=== PATIENT | female | born 1990 | race Two or more races ===

== ENCOUNTER 2018-05-16 11:13 | Inpatient (IN) | payer MEDICAID | END 2018-05-19 13:45 | disposition home or self-care (01) | LOC: ER 11:13 → OVERFLOW 14:41 → CENTRAL 20:00 | PROC: 0FT44ZZ Resection of Gallbladder, Percutaneous Endoscopic Approach (ICD-10-PCS; principal; 2018-05-18 07:26) | DX: K80.20 Calculus of gallbladder without cholecystitis without obstruction (principal); E11.9 Type 2 diabetes mellitus without complications; N39.0 Urinary tract infection, site not specified; F12.10 Cannabis abuse, uncomplicated; Z79.4 Long term (current) use of insulin; K80.10 Calculus of gallbladder with chronic cholecystitis without obstruction ==

== ENCOUNTER 2019-02-05 12:40 | Inpatient (IN) | payer SELFPAY ==
[~2019-02-05] VITALS: Ht 167.6 cm; Wt 71.8 kg
[~2019-02-05 12:40] MED LIST: ACE650RS PR; METF-370 PO
[2019-02-05 13:41] LABS: Basophils # (auto) 0 uL; Basophils % (auto) 0.2 % (0.0-2.0); Eosinophils # (auto) 0 uL; Eosinophils % (auto) 0.3 % (0.0-7.0); Hematocrit 44.8 % (36.0-46.0); Hemoglobin 15.1 g/dL (12.2-16.2); Lymphocytes # (auto) 0.6 uL; Lymphocytes % (auto) 4.9 % (10.0-50.0); Mean Corpuscular Hgb Conc. 33.8 g/dL (32.0-36.0); Mean Corpuscular Volume 88.9 fL (80.0-100.0); Monocytes # (auto) 0.2 uL; Monocytes % (auto) 1.8 % (0.0-12.0); Neutrophils # (auto) 11.2 uL; Neutrophils % (auto) 92.8 % (37.0-80.0); Nucleated Red Blood Cells % 0.1 %; Platelet Count (auto) 356 10^3/uL (140-450); Red Blood Cells 5.04 10^6/uL (4.0-5.20); Red Cell Distribution Width 13.1 % (11.8-14.3); White Blood Cell 12.1 10^3/uL (4.4-10.8)
[2019-02-05 14:05] LABS: Alanine Aminotransferase 35 U/L (13-56); Albumin 4.3 g/dL (3.4-5.0); Amylase 48 U/L (25-115); Anion Gap 12 (5-15); Aspartate Aminotransferase 14 U/L (15-37); BUN/Creatinine Ratio 21.2; Blood Urea Nitrogen 18 mg/dL (7-18); Carbon Dioxide 19 mmol/L (21-32); Chloride 109 mmol/L (98-107); GFR African American 101 mL/min; GFR Non-African American 83 mL/min; Glucose 203 mg/dL (74-106); Lipase 62 U/L (73-393); Sodium 140 mmol/L (136-145)
[2019-02-05 14:10] LABS: Alkaline Phosphatase 129 U/L (45-117); Bilirubin, Total 0.9 mg/dL (0.2-1.0); Total Protein 8.4 g/dL (6.4-8.2)
[2019-02-05] MEDS ORDERED: PROCHLORPERAZINE EDISYLATE 5 MG/ML 2ML VIAL IV ONE (16:15)
[2019-02-05] MEDS ORDERED: SODIUM CHLORIDE 0.9% 1,000 ML IV ONE ×2 (18:41)
[2019-02-05] MEDS ORDERED: PIPERACILLIN-TAZOB 3.375GM 100 ML IV ONE (18:45)
[2019-02-05 19:34] LABS: Lactic Acid w/Reflex 3.6 mmol/L (0.4-2.0)
[2019-02-05] MEDS ORDERED: DEXTROSE (50%) 50ML SYRG IV PRN (20:00)
[2019-02-05] MEDS ORDERED: ACETAMINOPHEN 500 MG TAB PO PRN (20:00)
[2019-02-05] MEDS ORDERED: MORPHINE SULF INJ 2 MG/ML SYRINGE 1ML IV PRN ×2 (20:00)
[2019-02-05] MEDS ORDERED: NITROGLYCERIN 0.4 MG SL TAB SL PRN (20:00)
[2019-02-05] MEDS ORDERED: HYDROcodone-ACET 5/325MG TAB PO PRN (20:00)
[2019-02-05 21:00] VITALS: BP 119/68
--- NOTE | 2019-02-05 21:00 | NUR ---
MS admit from ER [facility] admitted to tele/MS after SBAR received. Patient oriented to Marlena Richardson, primary RN, unit, room, bed, and unit policies regarding patient care and visiting hours. Patient weighed by bed scale and encouraged to call if they need something. All questions and concerns addressed, patient verbalized understanding. NO S/SX OF DISTRESS, SOB OR PAIN. WILL CONTINUE TO MONITOR Q1H AND PRN.
[2019-02-05 22:00] VITALS: BP 119/68
[2019-02-05] MEDS: VANCOMYCIN HCL 125MG/5ML ORAL SOL PO SCH (22:00)
--- NOTE | 2019-02-05 22:00 | NUR ---
CONTAINER FOR COLLECTION STOOL SPECIMEN AT BEDSIDE. PATIENT UNDERSTANDS AND VERBALIZES INSTRUCTION FOR COLLECTION AND PREFERS TO COLLECT HERSELF.
[2019-02-05] MEDS ORDERED: INFLUENZA QUAD 2019-2020 0.5ml SYRG IM ONE (22:30)
[2019-02-05] MEDS: SODIUM CHLORIDE 0.9% 1,000 ML IV SCH (22:37)
[2019-02-05] MEDS: FAMOTIDINE (10MG/ML) 2ML VL IV SCH (22:38)
[2019-02-06] VITALS (8 sets, daily range): BP systolic 102–125; BP diastolic 60–84
[2019-02-06] MEDS: PIPERACILLIN-TAZOB 3.375GM 100 ML IV SCH ×3 (00:52→11:13)
[2019-02-06] MEDS: ACCU-CHEK COMFORT CURVE STRIP VI SCH ×4 (00:52→17:49)
--- NOTE | 2019-02-06 05:15 | NUR ---
NAUSEA AND VOMITING. CLEAR FLUID. WILL ADMINISTER NAUSEA MEDICATION PER MD ORDERS ON eMAR.
[2019-02-06] MEDS: ONDANSETRON HCL 4 MG/2 ML VIAL IV PRN (05:19)
[2019-02-06 05:59] LABS: Basophils # (auto) 0 uL; Basophils % (auto) 0.2 % (0.0-2.0); Eosinophils # (auto) 0.1 uL; Eosinophils % (auto) 1.4 % (0.0-7.0); Hematocrit 39.7 % (36.0-46.0); Hemoglobin 13.2 g/dL (12.2-16.2); Lymphocytes # (auto) 2.3 uL; Lymphocytes % (auto) 29.6 % (10.0-50.0); Mean Corpuscular Hemoglobin 29.8 pg (28.0-32.0); Mean Corpuscular Hgb Conc. 33.4 g/dL (32.0-36.0); Mean Corpuscular Volume 89.4 fL (80.0-100.0); Monocytes # (auto) 0.5 uL; Neutrophils % (auto) 62.8 % (37.0-80.0); Nucleated Red Blood Cells % 0.1 %; Platelet Count (auto) 290 10^3/uL (140-450); Red Blood Cells 4.44 10^6/uL (4.0-5.20); Red Cell Distribution Width 12.9 % (11.8-14.3); White Blood Cell 7.9 10^3/uL (4.4-10.8)
[2019-02-06] MEDS: VANCOMYCIN HCL 125MG/5ML ORAL SOL PO SCH ×2 (06:00→12:14)
[2019-02-06] MEDS: InsuLIN REG 1unit/0.01ml Soln (100units/ml) SC SCH ×4 (06:00→17:47)
[2019-02-06 06:09] LABS: BUN/Creatinine Ratio 17.6; Calcium 7.9 mg/dL (8.5-10.1); Potassium 3.5 mmol/L (3.5-5.1)
[2019-02-06] MEDS: SODIUM CHLORIDE 0.9% 1,000 ML IV SCH ×2 (06:17→16:09)
--- NOTE | 2019-02-06 07:06 | NUR ---
CLOSING NOTE - NOC SHIFT ENDORSED PATIENT CARE TO DAY SHIFT NURSE SONDRA OCONNOR. NO S/SX OF DISTRESS, SOB OR PAIN. PATIENT IS RESTING IN BED.
[2019-02-06] MEDS: FAMOTIDINE (10MG/ML) 2ML VL IV SCH ×2 (09:22→21:52)
[2019-02-06] MEDS ORDERED: FOLIC ACID 1 MG, MULTIPLE VITAMIN 10 ML, MAGNESIUM SULF SDV 50% 8 MEQ, THIAMINE INJ 100... INJ SCH ×5 (12:00)
--- NOTE | 2019-02-06 15:41 | NUR ---
Assessment Pt is a 28 yr old alert and oriented female. Prior to admit, pt lives at home with family, is ambulatory, and independent with ADLs, cooking and cleaning. Pt came to hospital due to vomiting and diarrhea and stated that she has an infection in her colon. Pt is currently employed and does not have advanced directives. Pt is not currently receiving any services in the home. Pt stated that she is able to meet her needs. Pt stated that family member will transport home upon d/c. No needs or concerns stated at this time. Addendum: 02/06/19 at 1552 by ADAIR DE LEÓN Amended: Links added.
[2019-02-06] MEDS: CHOLESTYRAMINE 4 GM POWDER PO SCH ×2 (16:09→23:21)
--- NOTE | 2019-02-06 19:00 | NUR ---
OPENING NOTE- NOC SHIFT PATIENT IS IN BED, RESTING COMFORTABLE. BED IS LOCKED AT LOWEST POSITION, BED RAILS UP X2 FOR SAFETY PRECAUTIONS. PATIENT STATES THAT SHE WAS ABLE TO SLEEP WELL DURING THE DAY AND STATES THAT SHE ONLY HAD ONE EPISODE OF NAUSEA VOMITING IN THE MORNING. BANAN BAG FROM 1200 IS RUNNING AT 126 MLS PER HOUR WITH 700 MLS LEFT IN THE BAG. PATIENT DENIES N & V AT THIS TIME. BEDSIDE TABLE WITH PERSONAL BELONGINGS WITHIN REACH, CALL LIGHT WITHIN REACH. DISCUSSED POC WITH PATIENT AND INSTRUCTED PATIENT TO CALL PRN; PATIENT VERBALIZED UNDERSTANDING. WILL CONTINUE TO MONITOR Q1H AND PRN.
--- NOTE | 2019-02-06 22:25 | NUR ---
ROUNDS PATIENT COMFORTABLE IN BED. NO S/SX OF DISTRESS, SOB OR PAIN. WILL CONTINUE TO MONITOR Q1H AND PRN. PATIENT DENIES NAUSEA AT THIS TIME.
[2019-02-07] MEDS: SODIUM CHLORIDE 0.9% 1,000 ML IV SCH ×2 (01:42→12:23)
[2019-02-07 04:53] VITALS: BP 98/56
[2019-02-07] MEDS: ACCU-CHEK COMFORT CURVE STRIP VI SCH ×5 (06:00→23:42)
[2019-02-07] MEDS: InsuLIN REG 1unit/0.01ml Soln (100units/ml) SC SCH ×5 (06:00→23:48)
[2019-02-07 08:00] VITALS: BP 110/68
[2019-02-07 09:00] VITALS: BP 110/68
[2019-02-07] MEDS: ONDANSETRON HCL 4 MG/2 ML VIAL IV PRN (10:21)
[2019-02-07] MEDS: FAMOTIDINE (10MG/ML) 2ML VL IV SCH (10:21)
[2019-02-07] MEDS: CHOLESTYRAMINE 4 GM POWDER PO SCH ×2 (12:23→23:42)
[2019-02-07 13:00] VITALS: BP 111/65
[2019-02-07] MEDS: PANTOPRAZOLE 40 MG TAB PO SCH ×2 (13:31→21:41)
[2019-02-07 16:43] VITALS: BP 124/78
--- NOTE | 2019-02-07 19:40 | NUR ---
Opening Shift Note Assumed care of patient, awake and alert, oriented x 4. On room air with even and unlabored respiration, no S/S of distress or SOB. Patient ambulates with steady gait and turns independently in bed. IV intact and patent with NS 0.9% infusing at 100mL/hr. Patient reports watery black diarrhea. Instructed on POC for egd tomorrow and npo after midnight, patient verbalized understanding. Instructed to call for assist PRN, will continue to monitor for changes Q1hr and PRN.
[2019-02-07 22:00] VITALS: BP 132/78
[2019-02-08 05:00] VITALS: BP 124/79
[2019-02-08] MEDS: ONDANSETRON HCL 4 MG/2 ML VIAL IV PRN ×2 (05:27→14:48)
[2019-02-08] MEDS: ACCU-CHEK COMFORT CURVE STRIP VI SCH ×2 (05:30→11:48)
[2019-02-08] MEDS: InsuLIN REG 1unit/0.01ml Soln (100units/ml) SC SCH ×2 (05:30→11:49)
[2019-02-08 05:53] LABS: Basophils # (auto) 0 uL; Basophils % (auto) 0.5 % (0.0-2.0); Eosinophils # (auto) 0.2 uL; Eosinophils % (auto) 3.3 % (0.0-7.0); Hematocrit 33.8 % (36.0-46.0); Hemoglobin 11.9 g/dL (12.2-16.2); Lymphocytes # (auto) 2.2 uL; Lymphocytes % (auto) 42.3 % (10.0-50.0); Mean Corpuscular Hemoglobin 30.3 pg (28.0-32.0); Mean Corpuscular Hgb Conc. 35.3 g/dL (32.0-36.0); Mean Corpuscular Volume 85.9 fL (80.0-100.0); Monocytes # (auto) 0.4 uL; Monocytes % (auto) 8.1 % (0.0-12.0); Neutrophils # (auto) 2.4 uL; Neutrophils % (auto) 45.8 % (37.0-80.0); Nucleated Red Blood Cells % 0.1 %; Platelet Count (auto) 240 10^3/uL (140-450); Red Blood Cells 3.94 10^6/uL (4.0-5.20); Red Cell Distribution Width 12.8 % (11.8-14.3); White Blood Cell 5.3 10^3/uL (4.4-10.8)
[2019-02-08 06:07] LABS: INR 1.1 (0.9-1.15); Partial Thromboplastin Time 31.5 sec (23.64-32.05)
--- NOTE | 2019-02-08 06:56 | NUR ---
Closing Note patient resting in bed with even and unlabored respirations, no s/s of distress. IV intact and patent, saline locked. Remains NPO. Endorsed care to day shift ANASTASIA Zapata.
[2019-02-08 08:00] VITALS: BP 145/64
[2019-02-08] MEDS ORDERED: SODIUM CHLORIDE LOCK 10 ML ONE (08:37)
[2019-02-08] MEDS ORDERED: LIDOCAINE VISCOUS 2% 15ML UD ONE (08:37)
[2019-02-08] MEDS ORDERED: diphenhdrAMINE HCL 50 MG/1 ML VL ONE (08:37)
[2019-02-08] MEDS: PANTOPRAZOLE 40 MG TAB PO SCH (09:08)
[2019-02-08] MEDS: MIDAZOLAM HCL 5 MG/ML-1ML VIAL ONE ×2 (09:18→09:21)
[2019-02-08] MEDS: fentaNYL CITRATE 100 MCG/2 ML VL ONE ×2 (09:18→09:21)
[2019-02-08] MEDS ORDERED: DEXTROSE (50%) 50ML SYRG IV ONE (09:50)
[2019-02-08] MEDS ORDERED: DEXTROSE 50% SYRINGE 50 ML IV ONE (09:50)
[2019-02-08] MEDS: CHOLESTYRAMINE 4 GM POWDER PO SCH (11:48)
[2019-02-08] MEDS ORDERED: PANT40T PO (12:51)
[2019-02-08] MEDS ORDERED: CHL4PW PO (12:51)
[2019-02-08 13:00] VITALS: BP 131/74
--- NOTE | 2019-02-08 15:34 | NUR ---
PATIENT DISCHARGED HOME. ALL IV ACCESS DISCONTINUED. PATIENT NOT ON TELEMETRY. ALL DISCHARGE INSTRUCTIONS GIVEN. ALL DISCHARGE PAPERWORK SIGNED
== END 2019-02-08 15:40 | disposition home or self-care (01) | DRG 872 ==
LOC: ER 12:43 → OVERFLOW 12:44 → WEST WING 21:00
PROVIDERS: ADMIT Nurse Practitioner Acute Care; ATTEND Internal Medicine Nephrology
PROC: 0DB68ZX Excision of Stomach, Via Natural or Artificial Opening Endoscopic, Diagnostic (ICD-10-PCS; principal; 2019-02-08 09:18)
DX: A41.9 Sepsis, unspecified organism (principal); E11.9 Type 2 diabetes mellitus without complications; F12.10 Cannabis abuse, uncomplicated; K52.9 Noninfective gastroenteritis and colitis, unspecified; K29.70 Gastritis, unspecified, without bleeding; F17.200 Nicotine dependence, unspecified, uncomplicated; E86.0 Dehydration; Z79.4 Long term (current) use of insulin; Z82.49 Family history of ischemic heart disease and other diseases of the circulatory system; Z87.440 Personal history of urinary (tract) infections; Z83.3 Family history of diabetes mellitus; Z82.0 Family history of epilepsy and other diseases of the nervous system; Z82.5 Family history of asthma and other chronic lower respiratory diseases; Z82.61 Family history of arthritis; Z81.8 Family history of other mental and behavioral disorders; Z82.62 Family history of osteoporosis; Z80.8 Family history of malignant neoplasm of other organs or systems; Z80.3 Family history of malignant neoplasm of breast; Z80.41 Family history of malignant neoplasm of ovary; Z80.1 Family history of malignant neoplasm of trachea, bronchus and lung; Z82.3 Family history of stroke; Z90.49 Acquired absence of other specified parts of digestive tract; Z79.899 Other long term (current) drug therapy
CPT/HCPCS: 36415; 74176; 80048; 80053; 82150; 82962; 83036; 83605; 83690; 84484; 84702; 85025; 85610; 85652; 85730; 86141; 86850; 86900; 86901; 87040; 87045; 87186; 87427; 87493; 96365; 96375; G0378; J2250; J2405; J2543; J3490

== ENCOUNTER 2020-07-01 10:24 | Inpatient (IN) | payer MEDICAID ==
[~2020-07-01] VITALS: Ht 170.2 cm; Wt 82.0 kg
[~2020-07-01 10:24] MED LIST changes: +CHL4PW PO; -METF-370 PO; +PANT40T PO
[2020-07-01] MEDS ORDERED: PANTOPRAZOLE 40 MG/10 ML VIAL INJ IV STA (10:27)
[2020-07-01] MEDS ORDERED: MORPHINE SULFATE 4 MG/ML SYR/VIAL IV ONE (10:30)
[2020-07-01] MEDS ORDERED: PROCHLORPERAZINE EDISYLATE 5 MG/ML 2ML VIAL IV ONE (10:30)
[2020-07-01] MEDS ORDERED: SODIUM CHLORIDE 0.9% 1,000 ML IVB ONE (10:30)
[2020-07-01 10:59] LABS: Basophils # (auto) 0 10 ^3/uL (0-0.2); Basophils % (auto) 0.4 % (0.0-2.0); Eosinophils # (auto) 0.1 10 ^3/uL (0-0.8); Eosinophils % (auto) 1.2 % (0.0-7.0); Hematocrit 43.5 % (36.0-46.0); Hemoglobin 15.6 g/dL (12.2-16.2); Lymphocytes # (auto) 2.4 10 ^3/uL (0.4-5.4); Lymphocytes % (auto) 24.8 % (10.0-50.0); Mean Corpuscular Hemoglobin 29.8 pg (28.0-32.0); Mean Corpuscular Hgb Conc. 35.8 g/dL (32.0-36.0); Mean Corpuscular Volume 83.2 fL (80.0-100.0); Monocytes # (auto) 0.6 10 ^3/uL (0-1.3); Monocytes % (auto) 6.3 % (0.0-12.0); Neutrophils # (auto) 6.6 10 ^3/uL (1.6-8.6); Neutrophils % (auto) 67.3 % (37.0-80.0); Nucleated Red Blood Cells % 0.1 %; Red Blood Cells 5.23 10^6/uL (4.0-5.20); Red Cell Distribution Width 12.4 % (11.8-14.3); White Blood Cell 9.9 10^3/uL (4.4-10.8)
[2020-07-01 11:18] LABS: Albumin 4.1 g/dL (3.4-5.0); Calcium 8.9 mg/dL (8.5-10.1)
[2020-07-01 12:33] LABS: BUN/Creatinine Ratio 12.4
[2020-07-01 12:34] LABS: Potassium 2.4 mmol/L (3.5-5.1)
[2020-07-01 12:35] LABS: Bilirubin, Total 1.2 mg/dL (0.2-1.0); Total Protein 7.8 g/dL (6.4-8.2)
[2020-07-01 12:44] LABS: Urine Bacteria NONE SEEN /hpf (None Seen); Urine Blood Negative /uL (Negative); Urine Mucus FEW (None Seen); Urine WBC 3 /hpf (0 - 5)
[2020-07-01] MEDS ORDERED: POTASSIUM CHL 20MEQ/100ML 100 ML IV ONE ×2 (12:45→17:30)
[2020-07-01] MEDS ORDERED: MORPHINE SULFATE 4 MG/ML SYR/VIAL IV PRN (17:30)
[2020-07-01] MEDS ORDERED: SODIUM CHLORIDE 0.9% 1,000 ML IV ONE ×2 (17:30)
[2020-07-01] MEDS: ONDANSETRON HCL 4 MG/2 ML VIAL IV PRN (18:02)
[2020-07-01] MEDS: PANTOPRAZOLE 40 MG TAB PO SCH (18:03)
[2020-07-01 20:30] VITALS: BP 124/76
[2020-07-01 21:46] LABS: BUN/Creatinine Ratio 14.1; Calcium 7.9 mg/dL (8.5-10.1); Magnesium 2.2 mg/dL (1.6-2.6)
[2020-07-01 21:49] LABS: Potassium 2.6 mmol/L (3.5-5.1)
[2020-07-01 22:09] VITALS: BP 124/76
[2020-07-01] MEDS ORDERED: POTASSIUM CHLORIDE 80 MEQ, LIDOCAINE 1% (LOCAL ANESTH.) 6 ML in SODIUM CHL 0.9% 500 ML IV ONE (23:15)
[2020-07-02] VITALS (7 sets, daily range): BP systolic 124–155; BP diastolic 76–98
[2020-07-02] MEDS ORDERED: POTASSIUM CHL 20MEQ/100ML 400 ML IV ONE (00:16)
[2020-07-02] MEDS: ONDANSETRON HCL 4 MG/2 ML VIAL IV PRN (04:41)
[2020-07-02] MEDS: PANTOPRAZOLE 40 MG TAB PO SCH (10:57)
[2020-07-02] MEDS ORDERED: ONDA-144 PO (15:22)
[2020-07-02] MEDS ORDERED: PANT40T PO (20:02)
== END 2020-07-02 16:48 | disposition home health service (06) | DRG 249 ==
LOC: EDBD 10:24 → ER 10:24 → OVERFLOW 10:25 → EAST 20:00
PROVIDERS: ADMIT Internal Medicine; ATTEND Internal Medicine
DX: R11.15 Cyclical vomiting syndrome unrelated to migraine (principal); E87.6 Hypokalemia; E87.1 Hypo-osmolality and hyponatremia; E87.8 Other disorders of electrolyte and fluid balance, not elsewhere classified; Z20.822 Contact with and (suspected) exposure to COVID-19; Z83.3 Family history of diabetes mellitus; Z82.49 Family history of ischemic heart disease and other diseases of the circulatory system; Z84.1 Family history of disorders of kidney and ureter; K21.00 Gastro-esophageal reflux disease with esophagitis, without bleeding; Z80.0 Family history of malignant neoplasm of digestive organs; Z80.1 Family history of malignant neoplasm of trachea, bronchus and lung; Z80.41 Family history of malignant neoplasm of ovary; Z80.3 Family history of malignant neoplasm of breast; Z80.8 Family history of malignant neoplasm of other organs or systems; Z81.8 Family history of other mental and behavioral disorders; Z82.0 Family history of epilepsy and other diseases of the nervous system; Z82.3 Family history of stroke; Z82.5 Family history of asthma and other chronic lower respiratory diseases; Z82.62 Family history of osteoporosis; Z90.49 Acquired absence of other specified parts of digestive tract; F12.20 Cannabis dependence, uncomplicated
CPT/HCPCS: 36415; 74176; 80048; 80053; 81001; 83690; 83735; 84132; 84702; 85025; 87081; 87426; 96361; 96365; 96366; 96375; 96376; C9113; G0378; J2001; J2405; J3480

== ENCOUNTER 2020-11-28 15:10 | Emergency (ER) | payer MEDICAID ==
[~2020-11-28] VITALS: Ht 170.2 cm; Wt 83.9 kg
[~2020-11-28 15:10] MED LIST changes: -ACE650RS PR; -CHL4PW PO; +ONDA-144 PO
[2020-11-28] MEDS ORDERED: PANTOPRAZOLE 40 MG/10 ML VIAL INJ IV ONE (16:15)
[2020-11-28] MEDS ORDERED: PROCHLORPERAZINE EDISYLATE 5 MG/ML 2ML VIAL IV ONE (16:15)
[2020-11-28] MEDS ORDERED: SODIUM CHLORIDE 0.9% 1,000 ML IVB ONE (16:15)
[2020-11-28 16:51] LABS: Basophils # (auto) 0.1 10 ^3/uL (0-0.2); Basophils % (auto) 1.2 % (0.0-2.0); Eosinophils # (auto) 0 10 ^3/uL (0-0.8); Eosinophils % (auto) 0.1 % (0.0-7.0); Hematocrit 43.5 % (36.0-46.0); Hemoglobin 15.1 g/dL (12.2-16.2); Lymphocytes # (auto) 2.8 10 ^3/uL (0.4-5.4); Lymphocytes % (auto) 28.8 % (10.0-50.0); Mean Corpuscular Hemoglobin 28.2 pg (28.0-32.0); Mean Corpuscular Hgb Conc. 34.8 g/dL (32.0-36.0); Mean Corpuscular Volume 81.1 fL (80.0-100.0); Monocytes # (auto) 0.5 10 ^3/uL (0-1.3); Monocytes % (auto) 4.8 % (0.0-12.0); Neutrophils # (auto) 6.2 10 ^3/uL (1.6-8.6); Neutrophils % (auto) 65.1 % (37.0-80.0); Nucleated Red Blood Cells % 0.1 %; Red Blood Cells 5.36 10^6/uL (4.0-5.20); Red Cell Distribution Width 12.7 % (11.8-14.3); White Blood Cell 9.6 10^3/uL (4.4-10.8)
[2020-11-28 17:12] LABS: Albumin 3.6 g/dL (3.4-5.0); BUN/Creatinine Ratio 13.9; Calcium 8.6 mg/dL (8.5-10.1)
[2020-11-28 17:14] LABS: Total Protein 7.6 g/dL (6.4-8.2)
[2020-11-28 17:39] LABS: Potassium 2.6 mmol/L (3.5-5.1)
[2020-11-28] MEDS ORDERED: POTASSIUM CHL 20 Meq TABLET PO ONE ×2 (18:00→20:15)
[2020-11-28 18:37] LABS: Urine Blood Negative /uL (Negative); Urine Specific Gravity 1.022 (1.001-1.035)
[2020-11-28 18:38] LABS: Urine Bacteria NONE SEEN /hpf (None Seen); Urine Mucus FEW (None Seen); Urine WBC 2 /hpf (0 - 5)
[2020-11-28 18:46] LABS: Alcohol, Urine < 3.0 mg/dL (0-10); Amphetamine Screen, Urine NEGATIVE (NEGATIVE); Barbiturate Scree,Urine NEGATIVE (NEGATIVE); Benzodiazephine Screen, Urine NEGATIVE (NEGATIVE); Cannabinoid Screen, Urine POSITIVE (NEGATIVE); Cocaine Screen, Urine NEGATIVE (NEGATIVE)
[2020-11-28 18:53] LABS: Opiate Scree,Urine NEGATIVE (NEGATIVE); Phencyclidine Screen, Urine NEGATIVE (NEGATIVE)
[2020-11-28] MEDS ORDERED: POTASSIUM CHL 20MEQ/50ML 50 ML IV ONE (20:15)
[2020-11-28 21:15] VITALS: BP 117/67
== END 2020-11-28 23:06 | disposition home or self-care (01) ==
LOC: ER 15:10
DX: R11.2 Nausea with vomiting, unspecified (principal); E87.6 Hypokalemia; E87.1 Hypo-osmolality and hyponatremia; Z90.49 Acquired absence of other specified parts of digestive tract; Z79.899 Other long term (current) drug therapy
CPT/HCPCS: 36415; 80053; 80307; 81001; 83690; 85025; 96361; 96365; 96366; 96375; 99284; C9113; J0780; J3480; J7030

== ENCOUNTER 2020-12-23 15:33 | Emergency (ER) | payer MEDICAID ==
[~2020-12-23] VITALS: Ht 170.2 cm; Wt 81.6 kg
[2020-12-23 15:33] VITALS: BP 150/106
[2020-12-23] MEDS ORDERED: SODIUM CHLORIDE 0.9% 1,000 ML IVB ONE (16:00)
[2020-12-23] MEDS ORDERED: PROCHLORPERAZINE EDISYLATE 5 MG/ML 2ML VIAL IV ONE (16:00)
[2020-12-23] MEDS ORDERED: PANTOPRAZOLE 40 MG/10 ML VIAL INJ IV ONE (16:00)
== END 2020-12-23 21:09 | disposition left against medical advice (07) ==
LOC: ER 15:33
DX: R11.2 Nausea with vomiting, unspecified (principal); Z90.49 Acquired absence of other specified parts of digestive tract; Z79.899 Other long term (current) drug therapy

== ENCOUNTER 2021-05-08 08:28 | Inpatient (IN) | payer MEDICAID ==
[~2021-05-08] VITALS: Ht 170.2 cm; Wt 83.8 kg
[2021-05-08] MEDS ORDERED: SODIUM CHLORIDE 0.9% 1,000 ML IV ONE ×5 (09:15→12:45)
[2021-05-08] MEDS ORDERED: InsuLIN REG 1unit/0.01ml Soln (100units/ml) IV ONE ×2 (09:15→12:45)
[2021-05-08 09:38] LABS: Basophils # (auto) 0.1 10 ^3/uL (0-0.2); Basophils % (auto) 0.4 % (0.0-2.0); Eosinophils # (auto) 0 10 ^3/uL (0-0.8); Hematocrit 46.6 % (36.0-46.0); Lymphocytes % (auto) 13.5 % (10.0-50.0); Mean Corpuscular Hemoglobin 27.7 pg (28.0-32.0); Mean Corpuscular Hgb Conc. 32.2 g/dL (32.0-36.0); Monocytes # (auto) 0.8 10 ^3/uL (0-1.3); Monocytes % (auto) 5.5 % (0.0-12.0); Neutrophils # (auto) 11.6 10 ^3/uL (1.6-8.6); Neutrophils % (auto) 80.6 % (37.0-80.0); Red Blood Cells 5.42 10^6/uL (4.0-5.20); Red Cell Distribution Width 13.1 % (11.8-14.3); White Blood Cell 14.4 10^3/uL (4.4-10.8)
[2021-05-08 09:55] LABS: Calcium 9.2 mg/dL (8.5-10.1)
[2021-05-08 10:04] LABS: BUN/Creatinine Ratio 25.4; Total Protein 8.4 g/dL (6.4-8.2)
[2021-05-08 10:33] LABS: Urine Bacteria NONE SEEN /hpf (None Seen); Urine Blood Negative /uL (Negative); Urine Specific Gravity 1.025 (1.001-1.035); Urine WBC 11 /hpf (0 - 5)
[2021-05-08] MEDS ORDERED: InsuLIN R (HUMAN) 100 UNITS in SODIUM CHL 0.9% 99 ML IV SCH (11:15)
[2021-05-08] MEDS ORDERED: INSULIN LANTUS (GLARGINE) 1 /0.01ml (100units/ml) SC ONE (11:15)
[2021-05-08] MEDS ORDERED: DEXTROSE (50%) 50ML SYRG IV PRN ×3 (11:15→23:00)
[2021-05-08] MEDS: ACCU-CHEK COMFORT CURVE STRIP VI SCH ×8 (11:35→20:39)
[2021-05-08] MEDS ORDERED: PROCHLORPERAZINE EDISYLATE 5 MG/ML 2ML VIAL IV ONE (12:45)
[2021-05-08] MEDS ORDERED: PANTOPRAZOLE 40 MG/10 ML VIAL INJ IV ONE (18:00)
[2021-05-08] MEDS ORDERED: ACETAMINOPHEN 325 MG TAB PO PRN (18:00)
[2021-05-08] MEDS ORDERED: HYDROcodone-ACET 5/325MG TAB PO PRN (18:00)
[2021-05-08] MEDS: SODIUM CHLORIDE 0.9% 1,000 ML IV SCH ×2 (19:06→22:54)
[2021-05-08 19:11] LABS: BUN/Creatinine Ratio 26.1; Calcium 8.6 mg/dL (8.5-10.1)
[2021-05-08] MEDS ORDERED: InsuLIN REG 1unit/0.01ml Soln (100units/ml) SC SCH (20:00)
[2021-05-08 21:29] VITALS: BP 128/82
[2021-05-08 22:00] VITALS: BP 138/82
[2021-05-08] MEDS: ONDANSETRON HCL 4 MG/2 ML VIAL IV PRN (23:04)
[2021-05-09 01:26] LABS: BUN/Creatinine Ratio 27.8; Calcium 8.4 mg/dL (8.5-10.1)
[2021-05-09 05:00] VITALS: BP 145/98
[2021-05-09 06:18] LABS: Basophils # (auto) 0 10 ^3/uL (0-0.2); Basophils % (auto) 0.3 % (0.0-2.0); Eosinophils # (auto) 0 10 ^3/uL (0-0.8); Hematocrit 45.1 % (36.0-46.0); Hemoglobin 14.2 g/dL (12.2-16.2); Lymphocytes # (auto) 2.5 10 ^3/uL (0.4-5.4); Lymphocytes % (auto) 15.6 % (10.0-50.0); Mean Corpuscular Hemoglobin 27.8 pg (28.0-32.0); Mean Corpuscular Hgb Conc. 31.6 g/dL (32.0-36.0); Mean Corpuscular Volume 88.1 fL (80.0-100.0); Monocytes # (auto) 0.7 10 ^3/uL (0-1.3); Monocytes % (auto) 4.6 % (0.0-12.0); Neutrophils # (auto) 12.6 10 ^3/uL (1.6-8.6); Neutrophils % (auto) 79.5 % (37.0-80.0); Nucleated Red Blood Cells % 0.2 %; Red Blood Cells 5.12 10^6/uL (4.0-5.20); Red Cell Distribution Width 13.4 % (11.8-14.3); White Blood Cell 15.8 10^3/uL (4.4-10.8)
[2021-05-09 06:20] LABS: Calcium 8.4 mg/dL (8.5-10.1); Magnesium 3.5 mg/dL (1.6-2.6); Potassium 4.1 mmol/L (3.5-5.1)
[2021-05-09 06:22] LABS: BUN/Creatinine Ratio 29.9
[2021-05-09] MEDS: InsuLIN REG 1unit/0.01ml Soln (100units/ml) SC SCH ×2 (06:45→11:30)
[2021-05-09] MEDS: ACCU-CHEK COMFORT CURVE STRIP VI SCH ×2 (06:46→11:30)
[2021-05-09] MEDS: ONDANSETRON HCL 4 MG/2 ML VIAL IV PRN ×2 (06:58→13:15)
[2021-05-09 09:00] VITALS: BP 150/94
[2021-05-09] MEDS ORDERED: INSULIN LANTUS (GLARGINE) 1 /0.01ml (100units/ml) SC SCH ×2 (10:00)
[2021-05-09] MEDS ORDERED: PANTOPRAZOLE 40 MG TAB PO SCH (10:00)
[2021-05-09] MEDS ORDERED: levoFLOXacin 500 MG TAB PO SCH ×2 (12:15→12:30)
[2021-05-09] MEDS ORDERED: INSU1INJ19 SC (12:19)
[2021-05-09] MEDS ORDERED: INSU100I44 SC (12:19)
[2021-05-09] MEDS ORDERED: BLOO-200 XX (12:19)
[2021-05-09] MEDS ORDERED: PANT40T PO (12:19)
[2021-05-09] MEDS ORDERED: LEVO-28 PO (12:24)
[2021-05-09 13:00] VITALS: BP 157/103
[2021-05-09] MEDS: SODIUM CHLORIDE 0.9% 1,000 ML IV SCH (14:00)
[2021-05-09] MEDS ORDERED: ONDA-144 PO (15:52)
[2021-05-09 16:51] VITALS: BP 148/80
[2021-05-09 17:00] VITALS: BP 151/95
== END 2021-05-09 18:12 | disposition home health service (06) | DRG 420 ==
LOC: EDBD 08:28 → ER 08:28 → TELE 18:21 → TELE-CENTR 19:45
PROVIDERS: ADMIT Internal Medicine; ATTEND Internal Medicine
DX: E11.10 Type 2 diabetes mellitus with ketoacidosis without coma (principal); D72.829 Elevated white blood cell count, unspecified; F12.90 Cannabis use, unspecified, uncomplicated; N39.0 Urinary tract infection, site not specified; K21.00 Gastro-esophageal reflux disease with esophagitis, without bleeding; K44.9 Diaphragmatic hernia without obstruction or gangrene; K21.9 Gastro-esophageal reflux disease without esophagitis; Z20.822 Contact with and (suspected) exposure to COVID-19; Z80.1 Family history of malignant neoplasm of trachea, bronchus and lung; Z80.3 Family history of malignant neoplasm of breast; Z80.41 Family history of malignant neoplasm of ovary; Z80.8 Family history of malignant neoplasm of other organs or systems; Z81.8 Family history of other mental and behavioral disorders; Z82.0 Family history of epilepsy and other diseases of the nervous system; Z82.3 Family history of stroke; Z82.49 Family history of ischemic heart disease and other diseases of the circulatory system; Z82.5 Family history of asthma and other chronic lower respiratory diseases; Z82.62 Family history of osteoporosis; Z83.3 Family history of diabetes mellitus; Z90.49 Acquired absence of other specified parts of digestive tract
CPT/HCPCS: 36415; 36600; 74176; 80048; 80053; 81001; 82010; 82805; 82962; 83036; 83735; 85025; 87426; 96361; 96372; 96374; 96375; 96376; C9113; G0378; J1815; J2405

== ENCOUNTER 2021-05-13 06:48 | Inpatient (IN) | payer MEDICAID ==
[~2021-05-13] VITALS: Ht 170.2 cm; Wt 81.3 kg
[~2021-05-13 06:48] MED LIST changes: +BLOO-200 XX; +INSU100I44 SC; +INSU1INJ19 SC; +LEVO-28 PO
[2021-05-13] MEDS ORDERED: PROCHLORPERAZINE EDISYLATE 5 MG/ML 2ML VIAL IV ONE (07:15)
[2021-05-13] MEDS ORDERED: SODIUM CHLORIDE 0.9% 1,000 ML IV ONE (07:15)
[2021-05-13 07:42] LABS: Eosinophils # (auto) 0 10 ^3/uL (0-0.8); Eosinophils % (auto) 0.1 % (0.0-7.0); Hemoglobin 16.7 g/dL (12.2-16.2); Mean Corpuscular Hgb Conc. 33.3 g/dL (32.0-36.0); Monocytes # (auto) 0.5 10 ^3/uL (0-1.3); Neutrophils % (auto) 63.4 % (37.0-80.0); Red Blood Cells 6.01 10^6/uL (4.0-5.20)
[2021-05-13 07:43] LABS: Basophils # (auto) 0.1 10 ^3/uL (0-0.2); Basophils % (auto) 0.6 % (0.0-2.0); Hematocrit 50.2 % (36.0-46.0); Lymphocytes % (auto) 30.9 % (10.0-50.0); Mean Corpuscular Hemoglobin 27.8 pg (28.0-32.0); Mean Corpuscular Volume 83.6 fL (80.0-100.0); Neutrophils # (auto) 6.2 10 ^3/uL (1.6-8.6); Nucleated Red Blood Cells % 0.2 %; Red Cell Distribution Width 12.6 % (11.8-14.3); White Blood Cell 9.8 10^3/uL (4.4-10.8)
[2021-05-13 07:53] LABS: Albumin 3.8 g/dL (3.4-5.0); Calcium 9.2 mg/dL (8.5-10.1); Magnesium 2.9 mg/dL (1.6-2.6)
[2021-05-13 07:58] LABS: Bilirubin, Total 1.1 mg/dL (0.2-1.0); Total Protein 7.9 g/dL (6.4-8.2)
[2021-05-13 09:03] LABS: Alcohol, Urine < 3.0 mg/dL (0-10); Amphetamine Screen, Urine NEGATIVE (NEGATIVE); Barbiturate Scree,Urine NEGATIVE (NEGATIVE); Benzodiazephine Screen, Urine NEGATIVE (NEGATIVE); Cannabinoid Screen, Urine POSITIVE (NEGATIVE); Cocaine Screen, Urine NEGATIVE (NEGATIVE); Opiate Scree,Urine NEGATIVE (NEGATIVE); Phencyclidine Screen, Urine NEGATIVE (NEGATIVE)
[2021-05-13 09:42] LABS: Urine Bacteria NONE SEEN /hpf (None Seen); Urine Blood Negative /uL (Negative); Urine Mucus FEW (None Seen); Urine Specific Gravity 1.035 (1.001-1.035); Urine WBC 3 /hpf (0 - 5)
[2021-05-13] MEDS ORDERED: InsuLIN REG 1unit/0.01ml Soln (100units/ml) IV ONE (10:30)
[2021-05-13] MEDS ORDERED: MORPHINE SULFATE 4 MG/ML SYR/VIAL IV PRN (11:45)
[2021-05-13] MEDS ORDERED: MORPHINE SULFATE INJECTION 2 MG/ML SYRG IV PRN (11:45)
[2021-05-13] MEDS ORDERED: ACETAMINOPHEN 325 MG TAB PO PRN (11:45)
[2021-05-13] MEDS ORDERED: HYDROcodone-ACET 5/325MG TAB PO PRN (11:45)
[2021-05-13] MEDS ORDERED: NITROGLYCERIN 0.4 MG SL TAB SL PRN (11:45)
[2021-05-13] MEDS ORDERED: DEXTROSE (50%) 50ML SYRG IV PRN ×2 (12:00→23:15)
[2021-05-13] MEDS ORDERED: InsuLIN R (HUMAN) 100 UNITS in SODIUM CHL 0.9% 99 ML IV SCH ×2 (12:00→23:15)
[2021-05-13] MEDS ORDERED: INSULIN LANTUS (GLARGINE) 1 /0.01ml (100units/ml) SC ONE (12:00)
[2021-05-13] MEDS: ACCU-CHEK COMFORT CURVE STRIP VI SCH ×8 (12:20→22:52)
[2021-05-13] MEDS: SODIUM CHLORIDE 0.9% 1,000 ML IV SCH ×3 (12:20→18:06)
[2021-05-13 13:47] LABS: Basophils # (auto) 0.1 10 ^3/uL (0-0.2); Basophils % (auto) 0.7 % (0.0-2.0); Eosinophils # (auto) 0 10 ^3/uL (0-0.8); Eosinophils % (auto) 0.1 % (0.0-7.0); Hematocrit 41.6 % (36.0-46.0); Lymphocytes # (auto) 2.4 10 ^3/uL (0.4-5.4); Lymphocytes % (auto) 27.8 % (10.0-50.0); Mean Corpuscular Hemoglobin 28.2 pg (28.0-32.0); Mean Corpuscular Hgb Conc. 33.6 g/dL (32.0-36.0); Mean Corpuscular Volume 83.8 fL (80.0-100.0); Monocytes # (auto) 0.5 10 ^3/uL (0-1.3); Monocytes % (auto) 5.6 % (0.0-12.0); Neutrophils # (auto) 5.7 10 ^3/uL (1.6-8.6); Neutrophils % (auto) 65.8 % (37.0-80.0); Nucleated Red Blood Cells % 0.1 %; Red Blood Cells 4.96 10^6/uL (4.0-5.20); Red Cell Distribution Width 12.7 % (11.8-14.3); White Blood Cell 8.7 10^3/uL (4.4-10.8)
[2021-05-13 14:21] LABS: Calcium 8.1 mg/dL (8.5-10.1); Magnesium 2.8 mg/dL (1.6-2.6); Potassium 3.6 mmol/L (3.5-5.1)
[2021-05-13 14:23] LABS: BUN/Creatinine Ratio 18.2
[2021-05-13] MEDS ORDERED: SODIUM CHLORIDE 0.9% 1,000 ML IV SCH (16:00)
[2021-05-13 19:03] LABS: BUN/Creatinine Ratio 14.9; Calcium 7.7 mg/dL (8.5-10.1); Potassium 3.4 mmol/L (3.5-5.1)
[2021-05-13] MEDS: ONDANSETRON HCL 4 MG/2 ML VIAL IV PRN (21:20)
[2021-05-14] MEDS ORDERED: ACCU-CHEK COMFORT CURVE STRIP VI SCH
[2021-05-14 00:19] LABS: BUN/Creatinine Ratio 10.8; Calcium 7.7 mg/dL (8.5-10.1)
[2021-05-14] MEDS ORDERED: INSULIN LANTUS (GLARGINE) 1 /0.01ml (100units/ml) SC ONE (00:30)
[2021-05-14] MEDS: SODIUM CHLORIDE 0.9% 1,000 ML IV SCH ×4 (00:46→21:40)
[2021-05-14 00:52] LABS: Potassium 2.9 mmol/L (3.5-5.1)
[2021-05-14] MEDS: POTASSIUM CHL 10MEQ/50ML 50 ML IV SCH ×4 (03:30→06:30)
[2021-05-14] MEDS ORDERED: POTASSIUM CHL 20 Meq TABLET PO ONE (03:45)
[2021-05-14 07:21] LABS: Basophils # (auto) 0 10 ^3/uL (0-0.2); Basophils % (auto) 0.3 % (0.0-2.0); Eosinophils # (auto) 0 10 ^3/uL (0-0.8); Eosinophils % (auto) 0.3 % (0.0-7.0); Hematocrit 41.9 % (36.0-46.0); Hemoglobin 14.2 g/dL (12.2-16.2); Lymphocytes # (auto) 3.5 10 ^3/uL (0.4-5.4); Lymphocytes % (auto) 38.7 % (10.0-50.0); Mean Corpuscular Volume 82.5 fL (80.0-100.0); Monocytes # (auto) 0.5 10 ^3/uL (0-1.3); Monocytes % (auto) 5.1 % (0.0-12.0); Neutrophils % (auto) 55.6 % (37.0-80.0); Nucleated Red Blood Cells % 0.2 %; Red Blood Cells 5.07 10^6/uL (4.0-5.20); Red Cell Distribution Width 12.7 % (11.8-14.3)
[2021-05-14 07:28] LABS: Potassium 3.3 mmol/L (3.5-5.1)
[2021-05-14 07:35] LABS: BUN/Creatinine Ratio 8.3; Calcium 8.6 mg/dL (8.5-10.1)
[2021-05-14 08:00] VITALS: BP 153/90
[2021-05-14] MEDS: ACCU-CHEK COMFORT CURVE STRIP VI SCH ×4 (09:04→23:02)
[2021-05-14] MEDS: InsuLIN REG 1unit/0.01ml Soln (100units/ml) SC SCH ×4 (09:06→22:30)
[2021-05-14] MEDS: ENOXAPARIN SOD 40 MG/0.4 ML SYRINGE SC SCH (09:07)
[2021-05-14] MEDS: INSULIN LANTUS (GLARGINE) 1 /0.01ml (100units/ml) SC SCH ×2 (09:08→22:30)
[2021-05-14] MEDS ORDERED: POTASSIUM CHL 10MEQ/50ML 50 ML IV SCH (10:15)
[2021-05-14 12:00] VITALS: BP 132/84
[2021-05-14] MEDS: ONDANSETRON HCL 4 MG/2 ML VIAL IV PRN (16:31)
[2021-05-14 17:00] VITALS: BP 109/72
[2021-05-14 20:00] VITALS: BP 140/93
[2021-05-14] MEDS: PANTOPRAZOLE 40 MG/10 ML VIAL INJ IV SCH (20:58)
[2021-05-14 22:00] VITALS: BP 140/93
[2021-05-15] VITALS (7 sets, daily range): BP systolic 130–146; BP diastolic 79–96
[2021-05-15] MEDS: SODIUM CHLORIDE 0.9% 1,000 ML IV SCH ×4 (03:20→23:20)
[2021-05-15] MEDS: ONDANSETRON HCL 4 MG/2 ML VIAL IV PRN (04:53)
[2021-05-15] MEDS: InsuLIN REG 1unit/0.01ml Soln (100units/ml) SC SCH ×4 (07:00→22:00)
[2021-05-15] MEDS: ACCU-CHEK COMFORT CURVE STRIP VI SCH ×3 (07:15→18:49)
[2021-05-15] MEDS: INSULIN LANTUS (GLARGINE) 1 /0.01ml (100units/ml) SC SCH ×2 (10:53→22:00)
[2021-05-15] MEDS: ENOXAPARIN SOD 40 MG/0.4 ML SYRINGE SC SCH (10:53)
[2021-05-15] MEDS ORDERED: METOCLOPRAMIDE HCL 10 MG TAB PO PRN (13:45)
[2021-05-15 15:12] LABS: BUN/Creatinine Ratio 5.2; Calcium 8.6 mg/dL (8.5-10.1)
[2021-05-15 15:19] LABS: Potassium 2.9 mmol/L (3.5-5.1)
[2021-05-15] MEDS ORDERED: POTASSIUM CHL 20 Meq TABLET PO ONE (18:00)
[2021-05-15] MEDS: POTASSIUM CHL 10MEQ/50ML 50 ML IV SCH ×2 (20:00→22:00)
[2021-05-15] MEDS: PANTOPRAZOLE 40 MG/10 ML VIAL INJ IV SCH (22:00)
[2021-05-15] MEDS: METOCLOPRAMIDE HCL 5MG/ml INJ 2ml VIAL IV SCH (22:00)
[2021-05-16 05:00] VITALS: BP 110/76
[2021-05-16] MEDS: METOCLOPRAMIDE HCL 5MG/ml INJ 2ml VIAL IV SCH ×2 (06:00→14:00)
[2021-05-16 06:21] LABS: Basophils # (auto) 0 10 ^3/uL (0-0.2); Basophils % (auto) 0.2 % (0.0-2.0); Eosinophils # (auto) 0 10 ^3/uL (0-0.8); Eosinophils % (auto) 0.1 % (0.0-7.0); Hematocrit 40.8 % (36.0-46.0); Hemoglobin 14.1 g/dL (12.2-16.2); Lymphocytes # (auto) 3.1 10 ^3/uL (0.4-5.4); Lymphocytes % (auto) 44.5 % (10.0-50.0); Mean Corpuscular Hemoglobin 28.3 pg (28.0-32.0); Mean Corpuscular Hgb Conc. 34.7 g/dL (32.0-36.0); Mean Corpuscular Volume 81.5 fL (80.0-100.0); Monocytes # (auto) 0.6 10 ^3/uL (0-1.3); Monocytes % (auto) 8.2 % (0.0-12.0); Neutrophils # (auto) 3.2 10 ^3/uL (1.6-8.6); Nucleated Red Blood Cells % 0.2 %; Red Cell Distribution Width 12.6 % (11.8-14.3); White Blood Cell 6.9 10^3/uL (4.4-10.8)
[2021-05-16 06:41] LABS: Calcium 8.4 mg/dL (8.5-10.1)
[2021-05-16] MEDS: InsuLIN REG 1unit/0.01ml Soln (100units/ml) SC SCH ×2 (07:00→11:30)
[2021-05-16] MEDS: ACCU-CHEK COMFORT CURVE STRIP VI SCH ×2 (07:00→11:30)
[2021-05-16 07:14] LABS: Potassium 2.4 mmol/L (3.5-5.1)
[2021-05-16] MEDS: SODIUM CHLORIDE 0.9% 1,000 ML IV SCH ×3 (07:34→13:48)
[2021-05-16 09:00] VITALS: BP 122/79
[2021-05-16] MEDS ORDERED: POTASSIUM EFFERVESENT TAB 25 MEQ PO ONE (09:15)
[2021-05-16] MEDS: POTASSIUM CHL 10MEQ/50ML 50 ML IV SCH ×3 (09:15→11:15)
[2021-05-16] MEDS: ENOXAPARIN SOD 40 MG/0.4 ML SYRINGE SC SCH (10:00)
[2021-05-16] MEDS: INSULIN LANTUS (GLARGINE) 1 /0.01ml (100units/ml) SC SCH (10:00)
[2021-05-16] MEDS ORDERED: diphenhdrAMINE HCL 50 MG/1 ML VL ONE (12:59)
[2021-05-16] MEDS ORDERED: SODIUM CHLORIDE LOCK 0 ML ONE (12:59)
[2021-05-16] MEDS ORDERED: LIDOCAINE VISCOUS 2% 15ML UD ONE (12:59)
[2021-05-16] MEDS ORDERED: MIDAZOLAM HCL 5 MG/ML-1ML VIAL ONE (12:59)
[2021-05-16 13:00] VITALS: BP 120/78
[2021-05-16 15:30] VITALS: BP 120/78
== END 2021-05-16 16:00 | disposition home or self-care (01) | DRG 48 ==
LOC: ER 06:48 → TELE 11:41 → TELE-CENTR 05-14 07:11
PROVIDERS: ADMIT Internal Medicine; ATTEND Internal Medicine
DX: E11.43 Type 2 diabetes mellitus with diabetic autonomic (poly)neuropathy (principal); E66.01 Morbid (severe) obesity due to excess calories; R11.15 Cyclical vomiting syndrome unrelated to migraine; E11.10 Type 2 diabetes mellitus with ketoacidosis without coma; K31.84 Gastroparesis; E86.0 Dehydration; F12.90 Cannabis use, unspecified, uncomplicated; K21.9 Gastro-esophageal reflux disease without esophagitis; R74.8 Abnormal levels of other serum enzymes; N91.2 Amenorrhea, unspecified; E87.6 Hypokalemia; Z20.822 Contact with and (suspected) exposure to COVID-19; Z79.4 Long term (current) use of insulin; Z83.3 Family history of diabetes mellitus; Z85.41 Personal history of malignant neoplasm of cervix uteri; Z90.49 Acquired absence of other specified parts of digestive tract; Z68.29 Body mass index [BMI] 29.0-29.9, adult
CPT/HCPCS: 36415; 36600; 71045; 80048; 80053; 80307; 81001; 82010; 82805; 82962; 83690; 83735; 83930; 84100; 84443; 84702; 85025; 87081; 87426; 93005; 96365; 96366; 96372; 96375; 96376; C9113; G0378; J1815; J2250; J2405